=== PATIENT | male | born 1945 | race Caucasian/White ===

== ENCOUNTER 2022-05-23 14:57 | Inpatient (IN) ==
[2022-05-23 15:59] LABS: Albumin 3.8 G/DL (3.4-5.0); Bilirubin,Total 0.5 MG/DL (0.20-1.00); Calcium 9.3 MG/DL (8.5-10.1); Osmolality,Calculated 280.7 MOS/KG (273-304); Potassium 4.5 MMOL/L (3.5-5.1); Total Protein 7.3 G/DL (6.4-8.2)
[2022-05-23] MEDS ORDERED: ACETAMINOPHEN 325 MG TABLET PO PRN (16:07)
[2022-05-23] MEDS ORDERED: HYDROmorphone 1 MG/1 ML SYRINGE IV PRN (16:07)
[2022-05-23] MEDS ORDERED: GLUCAGON 1 MG VIAL IM PRN (16:07)
[2022-05-23] MEDS ORDERED: ALBUTEROL/IPRATROPIUM 3 ML NEB RESP TX PRN (16:07)
[2022-05-23] MEDS ORDERED: BISACODYL 5 MG TABLET PO PRN (16:07)
[2022-05-23] MEDS ORDERED: DEXTROSE 10% 250 ML BAG IV PRN (16:15)
[2022-05-23] MEDS: INSULIN REGULAR 100 UNIT/ML SUBCUT SCH ×2 (16:37→21:48)
[2022-05-23] MEDS: LACTATED RINGERS 1,000 ML IV SCH (16:44)
[2022-05-23] MEDS: KETOROLAC 30 MG/1 ML VIAL IV SCH ×2 (16:44→21:47)
[2022-05-23 17:03] LABS: Mucus,Urine Occasional /LPF (Occasional); RBC,Urine 2 /HPF (0-4); Squamous Epithelial Cell,Urine Occasional /HPF (0-10)
[2022-05-23 17:04] LABS: Bilirubin,Urine Negative (Negative); Blood, Urine Negative (Negative); Glucose,Urine (UA) Negative (Negative); Ketones,Urine 15 mg/dL (Negative); Nitrite,Urine Negative (Negative); Protein,Urine 30 mg/dL (Negative); Urine Appearance Clear (Clear); Urine Color Yellow (Yellow); Urine Specific Gravity 1.025 (1.001-1.035); Urine Urobilinogen 0.2 eU/dL (<2.0)
[2022-05-23] MEDS ORDERED: hydrALAZINE 20 MG/1 ML VIAL IV ONE (18:33)
[2022-05-23 18:45] LABS: Basophils % 0.2 % (0.0-0.8); Hematocrit 35.9 VOL% (42.0-52.0); Hemoglobin 11.6 GM/DL (14.0-18.0); Immature Granulocytes % 0.3 %; Immature Granulocytes Absolute 0.04 #; Lymphocytes # 1.8 10*3/uL (1.4-4.0); Lymphocytes % 14.2 % (21.2-54.2); Mean Corpuscular HGB Conc 32.3 GM/DL (32-36); Mean Platelet Volume 9.8 FL (9.6-12.0); Monocytes # 0.8 10*3/uL (0.11-0.8); Monocytes % 6.4 % (1.7-12.7); Neutrophils % 78.9 % (38.7-73.9); Platelet Count 284 T/CUMM (130-400); Red Blood Count 3.78 MC/CUMM (3.8-5.5); Red Cell Distribution Width 13.3 % (9.3-17.3); White Blood Count 12.9 T/CUMM (4-12)
[2022-05-23 19:07] LABS: Partial Thromboplastin Time 29.7 SECS (23.7-32.9)
[2022-05-23] MEDS: ALBUTEROL/IPRATROPIUM 3 ML NEB RESP TX SCH (19:21)
[2022-05-23] MEDS: ONDANSETRON 4 MG/2 ML VIAL IV PRN (19:24)
[2022-05-23] MEDS: HYDROmorphone 1 MG/1 ML SYRINGE IV PRN (19:24)
[2022-05-24] MEDS: ALBUTEROL/IPRATROPIUM 3 ML NEB RESP TX SCH ×4 (00:10→19:30)
[2022-05-24] MEDS: KETOROLAC 30 MG/1 ML VIAL IV SCH ×4 (05:26→22:10)
[2022-05-24] MEDS: LACTATED RINGERS 1,000 ML IV SCH ×2 (05:26→20:42)
[2022-05-24 06:18] LABS: Basophils % 0.4 % (0.0-0.8); Eosinophils % 0.2 % (0.00-10.9); Hematocrit 33.6 VOL% (42.0-52.0); Hemoglobin 10.8 GM/DL (14.0-18.0); Immature Granulocytes % 0.4 %; Immature Granulocytes Absolute 0.04 #; Lymphocytes # 2.4 10*3/uL (1.4-4.0); Lymphocytes % 23.2 % (21.2-54.2); Mean Corpuscular HGB Conc 32.1 GM/DL (32-36); Mean Corpuscular Volume 95.5 FL (87-102); Mean Platelet Volume 10.4 FL (9.6-12.0); Monocytes # 1.4 10*3/uL (0.11-0.8); Monocytes % 13.3 % (1.7-12.7); Neutrophils % 62.5 % (38.7-73.9); Platelet Count 258 T/CUMM (130-400); Red Blood Count 3.52 MC/CUMM (3.8-5.5); Red Cell Distribution Width 13.6 % (9.3-17.3); White Blood Count 10.2 T/CUMM (4-12)
[2022-05-24 06:29] LABS: Calcium 8.6 MG/DL (8.5-10.1); Osmolality,Calculated 291.8 MOS/KG (273-304); Potassium 4.7 MMOL/L (3.5-5.1)
[2022-05-24] MEDS: INSULIN REGULAR 100 UNIT/ML SUBCUT SCH ×4 (08:46→20:36)
[2022-05-24] MEDS: PANTOPRAZOLE 40 MG TABLET PO SCH (08:46)
[2022-05-24] MEDS ORDERED: ROPIVACAINE 0.5% 30 ML VIAL MISC INJ ONE (09:30)
[2022-05-24] MEDS ORDERED: DEXAMETHASONE 10 MG/1 ML VIAL MISC INJ ONE (09:30)
[2022-05-24] MEDS: ENOXAPARIN 40 MG/0.4 ML SYRINGE SUBCUT SCH (11:02)
[2022-05-24] MEDS ORDERED: LORATADINE 10 MG TABLET PO PRN (15:09)
[2022-05-24] MEDS ORDERED: SILVER SULFADIAZINE 1% CREAM 25 GM TUBE TOP PRN (15:09)
[2022-05-24] MEDS: glipiZIDE 5 MG TABLET PO SCH (16:54)
[2022-05-24] MEDS: INSULIN NPH/REGULAR 70/30 100 UNIT/ML SUBCUT SCH (16:54)
[2022-05-24] MEDS: metFORMIN 500 MG TABLET PO SCH (16:54)
[2022-05-24] MEDS: SIMVASTATIN 20 MG TABLET PO SCH (20:36)
[2022-05-24] MEDS: GABAPENTIN 300 MG CAPSULE PO SCH (20:36)
[2022-05-24] MEDS: ASPIRIN EC 81 MG TABLET PO SCH (20:36)
[2022-05-24] MEDS: CARBIDOPA/LEVODOPA 10-100 MG TABLET PO SCH (20:36)
[2022-05-25] MEDS: ALBUTEROL/IPRATROPIUM 3 ML NEB RESP TX SCH ×4 (00:20→19:30)
[2022-05-25] MEDS: KETOROLAC 30 MG/1 ML VIAL IV SCH ×4 (05:37→21:38)
[2022-05-25] MEDS: CARBIDOPA/LEVODOPA 10-100 MG TABLET PO SCH ×3 (05:38→21:36)
[2022-05-25] MEDS ORDERED: NON-FORMULARY MEDICATION (Omeprazole 20 mg Capsule,Delayed Release(Dr/Ec)) PO SCH (09:00)
[2022-05-25] MEDS: INSULIN NPH/REGULAR 70/30 100 UNIT/ML SUBCUT SCH ×2 (09:04→16:41)
[2022-05-25] MEDS: INSULIN REGULAR 100 UNIT/ML SUBCUT SCH ×4 (09:04→20:59)
[2022-05-25] MEDS: PANTOPRAZOLE 40 MG TABLET PO SCH (09:05)
[2022-05-25] MEDS: ENALAPRIL 20 MG TABLET PO SCH (09:05)
[2022-05-25] MEDS: MULTIVITAMIN (CENTRUM) TABLET PO SCH (09:05)
[2022-05-25] MEDS: LACTATED RINGERS 1,000 ML IV SCH ×2 (09:05→19:40)
[2022-05-25] MEDS: amLODIPine 5 MG TABLET PO SCH (09:05)
[2022-05-25] MEDS: ENOXAPARIN 40 MG/0.4 ML SYRINGE SUBCUT SCH (09:34)
[2022-05-25] MEDS: metFORMIN 500 MG TABLET PO SCH (16:41)
[2022-05-25] MEDS: glipiZIDE 5 MG TABLET PO SCH (16:41)
[2022-05-25] MEDS: GABAPENTIN 300 MG CAPSULE PO SCH (21:36)
[2022-05-25] MEDS: ASPIRIN EC 81 MG TABLET PO SCH (21:36)
[2022-05-25] MEDS: SIMVASTATIN 20 MG TABLET PO SCH (21:40)
[2022-05-26] MEDS: ALBUTEROL/IPRATROPIUM 3 ML NEB RESP TX SCH ×4 (00:40→19:45)
[2022-05-26] MEDS: LACTATED RINGERS 1,000 ML IV SCH ×3 (03:21→18:22)
[2022-05-26] MEDS: CARBIDOPA/LEVODOPA 10-100 MG TABLET PO SCH ×3 (05:07→21:43)
[2022-05-26] MEDS: KETOROLAC 30 MG/1 ML VIAL IV SCH ×4 (05:07→22:45)
[2022-05-26 06:37] LABS: Basophils % 0.3 % (0.0-0.8); Eosinophils # 0.3 10*3/uL (0.0-0.87); Eosinophils % 2.7 % (0.00-10.9); Hematocrit 32.1 VOL% (42.0-52.0); Hemoglobin 10.2 GM/DL (14.0-18.0); Immature Granulocytes % 0.3 %; Immature Granulocytes Absolute 0.03 #; Lymphocytes # 2.5 10*3/uL (1.4-4.0); Lymphocytes % 25.6 % (21.2-54.2); Mean Corpuscular HGB Conc 31.8 GM/DL (32-36); Mean Corpuscular Volume 95.8 FL (87-102); Mean Platelet Volume 10.5 FL (9.6-12.0); Monocytes # 1.1 10*3/uL (0.11-0.8); Neutrophils % 60.1 % (38.7-73.9); Platelet Count 219 T/CUMM (130-400); Red Blood Count 3.35 MC/CUMM (3.8-5.5); Red Cell Distribution Width 13.4 % (9.3-17.3); White Blood Count 9.6 T/CUMM (4-12)
[2022-05-26 06:51] LABS: Calcium 8.8 MG/DL (8.5-10.1); Osmolality,Calculated 286.5 MOS/KG (273-304); Potassium 4.3 MMOL/L (3.5-5.1)
[2022-05-26] MEDS: MULTIVITAMIN (CENTRUM) TABLET PO SCH (09:34)
[2022-05-26] MEDS: ENALAPRIL 20 MG TABLET PO SCH (09:34)
[2022-05-26] MEDS: amLODIPine 5 MG TABLET PO SCH (09:34)
[2022-05-26] MEDS: ENOXAPARIN 40 MG/0.4 ML SYRINGE SUBCUT SCH (09:35)
[2022-05-26] MEDS: INSULIN NPH/REGULAR 70/30 100 UNIT/ML SUBCUT SCH ×2 (09:35→16:21)
[2022-05-26] MEDS: INSULIN REGULAR 100 UNIT/ML SUBCUT SCH ×4 (09:35→21:00)
[2022-05-26] MEDS: PANTOPRAZOLE 40 MG TABLET PO SCH (11:18)
[2022-05-26] MEDS: CHOLECALCIFEROL 5,000 UNIT TABLET PO SCH ×2 (11:18→21:44)
[2022-05-26] MEDS: metFORMIN 500 MG TABLET PO SCH (16:21)
[2022-05-26] MEDS: glipiZIDE 5 MG TABLET PO SCH (16:21)
[2022-05-26] MEDS: HYDROmorphone 1 MG/1 ML SYRINGE IV PRN ×2 (20:56→23:40)
[2022-05-26] MEDS: ASPIRIN EC 81 MG TABLET PO SCH (21:43)
[2022-05-26] MEDS: SIMVASTATIN 20 MG TABLET PO SCH (21:43)
[2022-05-26] MEDS: GABAPENTIN 300 MG CAPSULE PO SCH (21:44)
[2022-05-27] MEDS: ALBUTEROL/IPRATROPIUM 3 ML NEB RESP TX SCH ×2 (01:09→07:38)
[2022-05-27] MEDS: HYDROmorphone 1 MG/1 ML SYRINGE IV PRN (03:46)
[2022-05-27] MEDS: LACTATED RINGERS 1,000 ML IV SCH ×2 (03:48→10:38)
[2022-05-27] MEDS: ONDANSETRON 4 MG/2 ML VIAL IV PRN (03:48)
[2022-05-27] MEDS: CARBIDOPA/LEVODOPA 10-100 MG TABLET PO SCH ×2 (05:55→12:35)
[2022-05-27] MEDS: KETOROLAC 30 MG/1 ML VIAL IV SCH ×2 (06:04→09:36)
[2022-05-27] MEDS: CHOLECALCIFEROL 5,000 UNIT TABLET PO SCH (09:34)
[2022-05-27] MEDS: ENALAPRIL 20 MG TABLET PO SCH (09:34)
[2022-05-27] MEDS: MULTIVITAMIN (CENTRUM) TABLET PO SCH (09:34)
[2022-05-27] MEDS: PANTOPRAZOLE 40 MG TABLET PO SCH (09:34)
[2022-05-27] MEDS: amLODIPine 5 MG TABLET PO SCH (09:34)
[2022-05-27] MEDS: ENOXAPARIN 40 MG/0.4 ML SYRINGE SUBCUT SCH (09:35)
[2022-05-27] MEDS: INSULIN REGULAR 100 UNIT/ML SUBCUT SCH ×2 (09:35→12:34)
[2022-05-27] MEDS: INSULIN NPH/REGULAR 70/30 100 UNIT/ML SUBCUT SCH (09:36)
[2022-05-27 11:11] VITALS: BP 165/55
== END 2022-05-27 15:34 | disposition home health service (06) | DRG 200 ==
LOC: N.ED 14:57 → N.EDINP 16:07 → N.3E 17:42
PROVIDERS: ADMIT Surgery; ATTEND Surgery